=== PATIENT | male | born 1935 | race Caucasian/White ===

== ENCOUNTER → 2017-03-03 | Outpatient (CLI) | payer MEDICARE, OTHER ==
[~2017-03-03] MED LIST: ATEN1TAB3 PO; ESOM40CA25 PO; EZET10TA18 PO
== END | disposition home or self-care (01) ==
LOC: PMGWOUND 08:18
PROVIDERS: ATTEND Emergency Medicine Undersea and Hyperbaric Medicine
DX: L02.01 Cutaneous abscess of face (principal); F17.210 Nicotine dependence, cigarettes, uncomplicated; Z72.89 Other problems related to lifestyle
CPT/HCPCS: 87071; 87075; 87205; 99205

== ENCOUNTER → 2017-03-10 | Outpatient (CLI) | payer MEDICARE, OTHER | END | disposition home or self-care (01) | LOC: PMGWOUND 08:13 | PROVIDERS: ATTEND Emergency Medicine Undersea and Hyperbaric Medicine | DX: T81.31XD Disruption of external operation (surgical) wound, not elsewhere classified, subsequent encounter (principal); F17.210 Nicotine dependence, cigarettes, uncomplicated; Z72.89 Other problems related to lifestyle; Y83.8 Other surgical procedures as the cause of abnormal reaction of the patient, or of later complication, without mention of misadventure at the time of the procedure | CPT/HCPCS: 99214 ==

== ENCOUNTER → 2017-03-17 | Outpatient (CLI) | payer MEDICARE, OTHER | END | disposition home or self-care (01) | LOC: PMGWOUND 07:45 | PROVIDERS: ATTEND Emergency Medicine Undersea and Hyperbaric Medicine | DX: T81.31XD Disruption of external operation (surgical) wound, not elsewhere classified, subsequent encounter (principal); F17.210 Nicotine dependence, cigarettes, uncomplicated; Z72.89 Other problems related to lifestyle; Y83.8 Other surgical procedures as the cause of abnormal reaction of the patient, or of later complication, without mention of misadventure at the time of the procedure | CPT/HCPCS: 99213 ==

== ENCOUNTER → 2017-03-26 | Outpatient (CLI) | payer MEDICARE, OTHER | END | disposition home or self-care (01) | LOC: PMGWOUND 07:47 | PROVIDERS: ATTEND Emergency Medicine Undersea and Hyperbaric Medicine | DX: T81.31XD Disruption of external operation (surgical) wound, not elsewhere classified, subsequent encounter (principal); L02.01 Cutaneous abscess of face; F17.210 Nicotine dependence, cigarettes, uncomplicated; Z72.89 Other problems related to lifestyle; Y83.8 Other surgical procedures as the cause of abnormal reaction of the patient, or of later complication, without mention of misadventure at the time of the procedure | CPT/HCPCS: 99213 ==

== ENCOUNTER → 2017-05-15 | Day surgery (SDC) | payer MEDICARE, OTHER ==
[~2017-05-15] MED LIST changes: +ALBUTEROL SULFATE 2.5 MG/3 ML NEBU. NEB ONE; +ALBUTEROL SULFATE 2.5 MG/3 ML NEBU. ONE; +HYDROmorphone 2 MG/ML VIAL IV PRN; +IV RINGERS,LACTATED 1000ML 1,000 ML IV SCH; +LIDOCAINE 1% 1 ML SYRINGE. ID PRN; +MIDAZOLAM HCL/PF 2 MG/2 ML VIAL. IV PRN; +MORPHINE SULFATE 2 MG/ML DISP.SYRIN. IV PRN; +MORPHINE SULFATE 4 MG/ML DISP.SYRIN. IV PRN; +ONDANSETRON PF 4 MG/2 ML VIAL. IV PRN; +PROCHLORPERAZINE 10 MG/2 ML VIAL. IV PRN; +PROPOFOL 20 ML IV ONE; +fentaNYL PF VIAL 100 MCG/2 ML VIAL IV PRN; +methylPREDNISolone SOD SUCC PF 125 MG/2 ML VIAL. IV ONE
[2017-05-15 12:09] LABS: BASO # 0.1 x10^3/uL (0.0-0.2); BASO % 1 % (0-3); EOS % 3 % (0-3); HEMATOCRIT 40.5 % (39.0-53.0); HEMOGLOBIN 14.1 g/dL (13.0-17.5); LYMPH # 1.9 x10^3/uL (1.0-4.8); LYMPH % 32 % (24-48); MEAN CORPUSCULAR HEMOGLOBIN 33 pg (25-35); MEAN CORPUSCULAR HGB CONC 35 g/dL (31-37); MEAN CORPUSCULAR VOLUME 94 fL (79-100); MONO % 7 % (0-9); NEUT % 57 % (31-73); PLATELET COUNT 206 x10^3/uL (140-400); RED BLOOD COUNT 4.34 x10^6/uL (4.30-5.70); RED CELL DISTRIBUTION WIDTH 15.6 % (11.5-14.5); WHITE BLOOD COUNT 6.1 x10^3/uL (4.0-11.0)
[2017-05-15 12:20] LABS: PROTHROMBIN TIME PATIENT 12.7 SEC (11.7-14.0)
[2017-05-15 13:41] VITALS: BP 150/80
--- NOTE | 2017-05-15 13:57 | OP ---
DATE OF SURGERY: 05/15/2017 DATE OF SERVICE: 05/15/2017 PROCEDURE: Fiberoptic bronchoscopy, right middle lobe brushing, right middle lobe bronchoalveolar lavage. INDICATIONS FOR PROCEDURE: Abnormal chest x-ray and CT of the chest with right middle lobe atelectasis. ANESTHESIA: Moderate sedation was done by anesthesiologist. Please see their separate note. DESCRIPTION OF PROCEDURE: After informed consent was obtained, time out was called. fiberoptic bronchoscopy was performed via left nares after using topical anesthesia with lidocaine jelly. The vocal cords were well visualized. They opposed normally with phonation. Trachea was then entered using more topical anesthesia with lidocaine 1%. Trachea was normal. Lisa was sharp. Moderate amount of clear secretion was noted in the tracheobronchial tree. Left mainstem was entered. Left upper, lingular and lower lobe bronchi were entered. There were no endobronchial lesions seen. The right main stem bronchus was entered. Right upper lobe, right lower lobe, right middle lobe were entered. There were no endobronchial lesions seen. Right middle lobe brushing and bronchoalveolar lavage was performed. The patient tolerated the procedure well. There were no obvious complications. At the end of the procedure, the patient is alert. His O2 saturation is 96%, respiratory rate 16, heart rate 98, blood pressure 132/68. The patient tolerated the procedure well. There were no obvious complications. The patient will have followup visit with Dr. Hines for the result of his bronchoscopy. The findings were discussed with the patient and his son. CIARA FLEMING M.D. DR: JUN/elmo JOB#: [id number] / [id number] OLGA
--- NOTE | 2017-05-18 17:46 | PATHOLOGY ---
CYTOPATHOLOGY REPORT CLINICAL HISTORY: Cough, RML atelectasis. SPECIMEN(S) RECEIVED: A.Bronchoalveolar lavage, RML B.Bronchial brushing, RML C.Bronchial brush rinse, NOS FINAL DIAGNOSIS: A. Right middle lobe bronchoalveolar lavage, ThinPrep: - No malignant cells identified. - Focally reactive bronchial epithelial cells, few squamous epithelial cells, and few pulmonary macrophages identified within a background of scattered inflammatory cells and red blood cells. B. Right middle lobe bronchial brushing, smears: - No malignant cells identified. - Focally reactive bronchial epithelial cells identified within a background of mucous and focally admixed inflammatory cells. C. Bronchial brush rinse, ThinPrep: - No malignant cells identified. - Focally reactive bronchial epithelial cells identified. (JPM:mgr; 05/18/2017) PATHOLOGIST: Christiano Salazar M.D. REPORT ELECTRONICALLY SIGNED BY: Christiano Salazar M.D. DATE/TIME: 05/18/2017 17:45 GROSS PATHOLOGY: A. Bronchoalveolar lavage, RML: The specimen is submitted unfixed, labeled "Sushant Huerta". Received by the Cytology Department is 9 mL of cloudy red fluid. One ThinPrep slide was prepared. B. Bronchial brushing, RML: The specimen is labeled "Sushant Huerta" and consists of two fixed slides. C. Bronchial brush rinse, NOS: The specimen is labeled "Sushant Huerta" and consists of a brush tip in fixative. One ThinPrep slide was prepared. (clt 05.15.2017) MICRO COMPUTER DATA PROCESSOR(S): SRINATH Jesus([facility]) INITIAL CPT CODE(S): A; 19108 B; 42980 C; 25544 Professional services performed by [facility] at [address] [address] Technical services performed by [facility] at [address] [place] [address], [address], [place] [address]. PATIENT: SUSHANT HUERTA /AGE: 210/30/1935 (Age: 81) SEX: M PATIENT #: [id number] ALT CASE #: SPECIMEN COLLECTION DATE: 05/15/2017 SPECIMEN RECEIVED DATE: 05/15/[address] [facility] [address] [place] [address], [address] [place] [address] PHONE: [phone] DIRECTOR: Aron Cuellar M.D. * * * END OF REPORT * * *
== END | disposition home or self-care (01) ==
LOC: SURG 10:57
PROVIDERS: ATTEND Internal Medicine Pulmonary Disease
DX: J98.11 Atelectasis (principal); F32.9 Major depressive disorder, single episode, unspecified; F17.200 Nicotine dependence, unspecified, uncomplicated; Z72.0 Tobacco use; Z98.41 Cataract extraction status, right eye; Z98.42 Cataract extraction status, left eye; Z87.01 Personal history of pneumonia (recurrent); Z87.39 Personal history of other diseases of the musculoskeletal system and connective tissue; Z79.01 Long term (current) use of anticoagulants
CPT/HCPCS: 31624; 36415; 85025; 85610; 87070; 87102; 87116; 87186; 87205; 88104; 88112; 94640; J2704; J2930; J7613; 31622

== ENCOUNTER → 2017-06-04 | Outpatient (CLI) | payer MEDICARE, OTHER ==
[2017-05-15 13:41] VITALS: BP 150/80
[~2017-06-04] MED LIST changes: -ALBUTEROL SULFATE 2.5 MG/3 ML NEBU. NEB ONE; -ALBUTEROL SULFATE 2.5 MG/3 ML NEBU. ONE; -HYDROmorphone 2 MG/ML VIAL IV PRN; -IV RINGERS,LACTATED 1000ML 1,000 ML IV SCH; -LIDOCAINE 1% 1 ML SYRINGE. ID PRN; -MIDAZOLAM HCL/PF 2 MG/2 ML VIAL. IV PRN; -MORPHINE SULFATE 2 MG/ML DISP.SYRIN. IV PRN; -MORPHINE SULFATE 4 MG/ML DISP.SYRIN. IV PRN; -ONDANSETRON PF 4 MG/2 ML VIAL. IV PRN; -PROCHLORPERAZINE 10 MG/2 ML VIAL. IV PRN; -PROPOFOL 20 ML IV ONE; -fentaNYL PF VIAL 100 MCG/2 ML VIAL IV PRN; -methylPREDNISolone SOD SUCC PF 125 MG/2 ML VIAL. IV ONE
--- NOTE | 2017-06-04 13:07 | KCIC ---
INDICATION: Prior craniotomy for retro-orbital tumor. MRI screening. TECHNIQUE: Orbit screening series with upward and downward gaze was obtained. No comparison is available. FINDINGS: No radiopaque foreign body in the region of the orbits is identified. There has been previous right craniotomy. IMPRESSION: Negative for radiopaque foreign body in the region of the orbits. Electronically signed by: Delroy Luevano MD (06/04/2017 1:04 PM) [facility]-[id number]
--- NOTE | 2017-06-04 14:05 | KCIC ---
MR of the right ankle Indication: Right ankle pain, near the lateral malleolus, for several weeks. No known injury.. Technique: Standard multiplanar sequences are obtained. Findings: Peroneal tendons: Peroneal tendons are intact. There is mild edema within the tubercle between the peroneus longus and brevis tendons as well as mild surrounding fluid, raising the question of tenosynovitis. Lateral ligaments: Scarring of the anterior talofibular, and calcaneofibular ligaments. No acute tear or discontinuity. Tibiofibular syndesmosis:Intact. Medial tendons: Posterior tibial and flexor tendons are intact. Medial ligaments: Scarring of the deep fibers of the deltoid ligament. Anterior tendons: Anterior tibial and extensor tendons are intact. Achilles tendon: Intact. Plantar aponeurosis: No acute plantar fasciitis Subtalar joints: Patent Tarsal sinus: Intact Talar Dome: There is irregularity of the subchondral bone plate of the lateral talar dome with minimal subjacent cystic-type change. Findings likely represent old transchondral trauma. There is no evidence of an unstable or osteochondral lesion. Bones: No significant lesion or acute fracture Fluid:No significant effusion. Joints: No advanced DJD. Soft tissues: Subcutaneous edema and intramuscular around the ankle. Note that the patient has a relatively high longitudinal arch of the foot. Impression: 1. Findings suggest mild peroneal longus and brevis tenosynovitis. The tendons are intrinsically intact. 2. Chronic ankle ligament scarring. 3. Generalized soft tissue edema and muscle edema around the ankle and visualized foot. 3. Irregularity of the subchondral bone of the lateral talar dome likely due to old transchondral trauma. No evidence of unstable osteochondral lesion. Electronically signed by: Renny Rios MD (06/04/2017 1:58 PM) [facility]
== END | disposition home or self-care (01) ==
LOC: KCIC MRI 12:39
PROVIDERS: ATTEND Physician Assistant
DX: M65.871 Other synovitis and tenosynovitis, right ankle and foot (principal); T15.00XA Foreign body in cornea, unspecified eye, initial encounter; Y93.89 Activity, other specified; Y92.89 Other specified places as the place of occurrence of the external cause; Y99.8 Other external cause status
CPT/HCPCS: 70030; 73721

== ENCOUNTER → 2017-09-29 | Outpatient (CLI) | payer MEDICARE, OTHER | END | disposition home or self-care (01) | LOC: KCIC MRI 11:38 | DX: M75.102 Unspecified rotator cuff tear or rupture of left shoulder, not specified as traumatic (principal); J32.2 Chronic ethmoidal sinusitis; J32.3 Chronic sphenoidal sinusitis; W19.XXXA Unspecified fall, initial encounter; Z98.890 Other specified postprocedural states; Z90.49 Acquired absence of other specified parts of digestive tract; Y93.89 Activity, other specified; Y92.89 Other specified places as the place of occurrence of the external cause; Y99.8 Other external cause status | CPT/HCPCS: 70486; 73221 ==

== ENCOUNTER → 2019-08-26 | Outpatient (CLI) | payer MEDICARE, OTHER ==
[2017-05-15 13:41] VITALS: BP 150/80
[~2019-08-26] MED LIST changes: -EZET10TA18 PO; +EZET10TA20 PO
--- NOTE | 2019-08-26 11:02 | RAD ---
PET/CT imaging from the skull through the midthigh History: Enlarging right lower lobe pulmonary nodule seen on chest CT dated August 03, 2019 performed at [facility]. Comparison: Chest CTs dated August 03, 2019 and April 21, 2017 and November 30, 2018 performed at [facility]. Technique: PET examination was performed from the skull base to the proximal thighs after intravenous administration of 16.1 mCi Fluorine [address] scan was performed for the purposes of localization and attenuation, not for primary diagnosis. Blood glucose level at time of injection was 94 mg/dl. PQRS Compliance Statement: One or more of the following individualized dose reduction techniques were utilized for this examination: 1. Automated exposure control 2. Adjustment of the mA and/or kV according to patient size 3. Use of iterative reconstruction technique Findings: HEAD AND NECK: There is physiologic activity involving the salivary glands and oropharynx. Currently, oral pharyngitis could be present if there are clinical findings of such. No abnormally enlarged cervical lymphadenopathy is seen. CHEST: There is a right lower lobe lung nodule inferiorly and medially which measures 13 mm in size. This demonstrates a max SUV of 1.2. This is not much greater than background within the chest wall. There is complete volume loss and consolidation of the right middle lobe. This demonstrates a max SUV of 3.3. Infiltrate is present within the right upper lobe adjacent to the collapsed right middle lobe but this is not hypermetabolic. Small left lower lobe lung nodule is stable since 2017 consistent with a benign finding and is not hypermetabolic. Hypermetabolic right hilar lymph nodes are seen with a max SUV of 3.2. There are calcified right hilar lymph nodes in this area and therefore this may be secondary to old granulomatous disease. There is no enlarging right hilar lymphadenopathy in this area going back to old studies. No enlarged thoracic lymphadenopathy is seen. ABDOMEN AND PELVIS: There is diffuse physiologic activity involving the liver and spleen and tract and GI tract. Most prominent activity is seen involving the proximal stomach with a max SUV of 4.2. No enlarged abdominal or pelvic lymphadenopathy is evident. No soft tissue mass is evident. 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 No hypermetabolic activity or lytic process is seen. INCIDENTAL FINDINGS: calcified atheromatous disease of the coronary arteries is seen. IMPRESSION: 13 mm right lower lobe lung nodule which has increased in size since November 2018. It was not present in 2017. It is not significantly hypermetabolic. Therefore, this could represent an inflammatory nodule or low-grade neoplastic nodule. Continued chest CT follow-up in 6 months is recommended. Volume loss with complete consolidation and collapse of the right middle lobe. This area is hypermetabolic. This could be due to inflammation or infection. This is a chronic finding. Right hilar lymph nodes due to old calcified granulomatous disease. Oral pharyngeal activity which most likely is physiologic in nature. This could be seen with oral pharyngitis if there are clinical findings of such. Prominent activity is present within the stomach most likely physiologic in nature but could be seen with gastritis. Neoplastic disease has not been excluded.
== END ==
LOC: PETSC 07:43
PROVIDERS: ATTEND Internal Medicine Pulmonary Disease
DX: R91.1 Solitary pulmonary nodule (principal); I25.10 Atherosclerotic heart disease of native coronary artery without angina pectoris; F17.200 Nicotine dependence, unspecified, uncomplicated; M19.90 Unspecified osteoarthritis, unspecified site
CPT/HCPCS: 78815; A9552

== ENCOUNTER 2020-03-05 06:50 | Outpatient (CLI) | payer MEDICARE, OTHER ==
[~2020-03-05] VITALS: Ht 180.3 cm; Wt 74.8 kg
[2020-03-05] VITALS (18 sets, daily range): BP systolic 121–189; BP diastolic 63–87
[2020-03-05 07:30] LABS: BASO % 1 % (0-3); EOS # 0.1 x10^3/uL (0.0-0.7); EOS % 2 % (0-3); HEMATOCRIT 42.2 % (39.0-53.0); HEMOGLOBIN 14.4 g/dL (13.0-17.5); LYMPH % 37 % (24-48); MEAN CORPUSCULAR HEMOGLOBIN 33 pg (25-35); MEAN CORPUSCULAR HGB CONC 34 g/dL (31-37); MEAN CORPUSCULAR VOLUME 97 fL (79-100); MONO # 0.5 x10^3/uL (0.0-1.1); MONO % 10 % (0-9); NEUT # 2.8 x10^3/uL (1.8-7.7); NEUT % 51 % (31-73); PLATELET COUNT 212 x10^3/uL (140-400); RED BLOOD COUNT 4.35 x10^6/uL (4.30-5.70); RED CELL DISTRIBUTION WIDTH 14.2 % (11.5-14.5); WHITE BLOOD COUNT 5.5 x10^3/uL (4.0-11.0)
[2020-03-05 07:39] LABS: PROTHROMBIN TIME PATIENT 12.3 SEC (11.7-14.0)
[2020-03-05] MEDS ORDERED: CETI10TA24 PO (08:15)
[2020-03-05] MEDS ORDERED: MIDAZOLAM HCL/PF 2 MG/2 ML VIAL. ONE (08:28)
[2020-03-05] MEDS ORDERED: fentaNYL PF VIAL 100 MCG/2 ML VIAL ONE (08:28)
[2020-03-05] MEDS ORDERED: LIDOCAINE WITH 8.4% SOD BICARB 3 ML DISP.SYRIN. ONE (08:37)
[2020-03-05] MEDS ORDERED: MIDAZOLAM HCL/PF 2 MG/2 ML VIAL. IV ONE (09:00)
[2020-03-05] MEDS ORDERED: LIDOCAINE WITH 8.4% SOD BICARB 3 ML DISP.SYRIN. IJ ONE (09:00)
[2020-03-05] MEDS ORDERED: fentaNYL PF VIAL 100 MCG/2 ML VIAL IV ONE (09:00)
--- NOTE | 2020-03-05 11:50 | NUR ---
Discharge Note: WOLFGANG HUERTA RN provided all instructions. Discharge instructions and discharge home medications reviewed with Patient and a copy given. All questions have been answered and understanding verbalized. Dressing site remains clean and dry The following instructions and handouts were given: lung biopsy, sedation, smoking cessation. Discontinued lines and drains: Peripheral IV intact. Patient discharged to Home or Self Care with Family Member via Wheelchair JOHN RN Addendum: 03/05/20 at 1314 by PALLAVI HEMPHILL RN Amended: Links added.
--- NOTE | 2020-03-05 12:41 | RAD ---
EXAM: CHEST AP ONLY INDICATION: Reason: lung biopsy / Spl. Instructions: DO @ 11:30AM / History: . TECHNIQUE: Single view COMPARISON: CT-guided lung biopsy of earlier the same day FINDINGS: The heart size is normal. The great vessels appear unremarkable. There is no hilar or mediastinal mass. The lungs show no focal infiltrates. The nodule targeted for biopsy is not well seen, likely obscured by the right diaphragm. There is no pleural effusion. At the right lung apex, of subtle pleural line is suspected, likely reflecting a tiny right apical pneumothorax. The right lateral costophrenic sulcus is slightly deeper than the left but is unchanged from the prebiopsy foreign language professor image of earlier the same day. No pleural line identified at the right lateral costophrenic angle. There are no significant osseous abnormalities. IMPRESSION: Possible trace right apical pneumothorax post biopsy. No evidence of tension. Discussed with Dr. Aguilar in person at approximately 11:45 AM on 03/05/2020. Electronically signed by: William Levy MD (03/05/2020 12:38 PM) [id number]
--- NOTE | 2020-03-05 15:24 | RAD ---
CT-guided biopsy right lower lobe pulmonary nodule 03/05/2020 INDICATION: Enlarging right lower lobe pulmonary nodule CT-guided bone marrow biopsy Discussion: The risks and benefits of the procedure, including but not limited to, bleeding and infection were discussed patient. Informed consent was obtained. The patient was brought to the CT scanner and placed in the prone position. A timeout procedure was performed. CT imaging redemonstrates a 1.3 cm nodule in the basilar right lower lobe. The overlying skin was prepped and draped using sterile barrier technique. 1% lidocaine was administered for local anesthesia. Under intermittent CT guidance a 17-gauge's needle was advanced to the nodule. Core biopsies were obtained. The needle was removed. Small pneumothorax is noted on post biopsy imaging. Following 10 minutes imaging was repeated and the pneumothorax appeared unchanged to slightly smaller. The patient was transferred to the recovery area in stable condition. The procedure was performed under conscious sedation including continuous cardiopulmonary monitoring via dedicated sedation nurse. Sedation time: 20 minutes Impression: CT-guided biopsy, right lower lobe pulmonary nodule. PQRS Compliance Statement: One or more of the following individualized dose reduction techniques were utilized for this examination: 1. Automated exposure control 2. Adjustment of the mA and/or kV according to patient size 3. Use of iterative reconstruction technique
--- NOTE | 2020-03-06 14:07 | PATHOLOGY ---
[facility] Accession Number: [id number] . 01 Material submitted: . lung - RIGHT LUNG MASS CORE BIOPSY. Modifiers: right . 01 Clinical history: . Right lung mass . 02 Diagnosis: Lung tissue, right lung mass CT-guided needle biopsy: - SQUAMOUS CELL CARCINOMA, MODERATELY DIFFERENTIATED. SEE COMMENT. (JPM:antonio; 03/06/2020) QMS 03/06/2020 0906 Local . 02 Comment: Sections of the right lung mass CT guided needle biopsy show extensive replacement of lung parenchyma by a malignant epithelial neoplasm. The latter consists of irregular nests of malignant cells which infiltrate and inflamed reactive desmoplastic stroma. The malignant cells have a squamoid appearance and have ample amounts of eosinophilic cytoplasm. The malignant cells possess enlarged, rounded to ovoid moderately pleomorphic hyperchromatic nuclei containing prominent nucleoli. Nests of tumor cells focally show evidence of keratinization with keratin pearls. There are mitotic figures present. The morphologic findings are supportive of the diagnosis of a moderately differentiated squamous cell carcinoma. The case is also examined by Dr. Pablo, who concurs with the diagnosis. The results are reported to Dr Ni on 03/06/20 at 1:30 PM. (JPM:antonio; 03/06/2020) . 02 Electronically signed: . Christiano Salazar MD, Pathologist NPI- [id number] . 01 Gross description: . The specimen is received in formalin, labeled "Mejia, Ray, right lung BX" and consists of 2 delicate needle cores of pink-garcia tissue measuring 0.9 cm each in length and 0.1 cm or less each in diameter which are entirely submitted in A1. (SDY; 03/05/2020) SYU/SYU 03/05/2020 1444 Local . 02 Pathologist provided ICD-10: C34.91 . 02 CPT . 730587 Specimen Comment: A courtesy copy of this report has been sent to [phone], [phone] Specimen Comment: [id number] Specimen Comment: Report sent to / DR DIANA Specimen Comment: Report sent to Performed at: [address], [place] [id number] MD Jose Franks MD Phone: [phone] Performed at: [facility] [address] [place], [place] [id number] MD Christiano Salazar MD Phone: [phone]
== END 2020-03-05 11:50 | disposition home or self-care (01) ==
LOC: INTRAD 06:50
PROVIDERS: ATTEND Internal Medicine Pulmonary Disease
DX: R91.8 Other nonspecific abnormal finding of lung field (principal); C34.91 Malignant neoplasm of unspecified part of right bronchus or lung; Z79.01 Long term (current) use of anticoagulants
CPT/HCPCS: 32405; 36415; 71045; 77012; 85025; 85610; 88305; 99152; J2250; J3010; J3490; 99153